=== PATIENT | female | born 1995 | race Hispanic/Latino ===

== ENCOUNTER 2016-07-12 08:40 | Emergency (ER) | payer OTHER ==
[~2016-07-12] VITALS: Ht 162.6 cm; Wt 134.3 kg
[~2016-07-12 08:40] MED LIST: MOTRIN 600 MG600 MG PO; MOTRIN600 MG PO; PEN-VK500 MG PO; PROAIR HFA0.09 MG/Ac INH; [UNRECOGNIZED DRUG - OTHER] PO
--- NOTE | 2016-07-12 08:55 | ED HEADACHE COMPLAINT ---
History of Present Illness General Chief Complaint: Headache Stated Complaint: HEADACHE , EYES HURT Source: patient, family Exam Limitations: no limitations Vital Signs & Intake/Output Vital Signs & Intake/Output Vital Signs Date Time Temp Pulse Resp B/P Pulse O2 O2 Flow FiO2 Ox Delivery Rate 07/12 1324 70 22 110/70 98 Room Air 07/12 1149 60 20 102/77 100 07/12 0853 96.0 81 20 117/77 98 Room Air Room Air Allergies Coded Allergies: NO KNOWN ALLERGIES (07/13/14) Reconcile Medications Cyclobenzaprine HCl 10 MG TABLET 1 TAB PO Q8P PAIN OR SPASM Triage Note: PT TO ED WITH C/O HEADACHE, BILATERAL EYE PAIN X SEVERAL DAYS, C/O NAUSEA BUT NO VOMITING. DENIES SINUS CONGESTION OR OTHER SYMPTOMS. DENIES FEVER AT HOME. Triage Nurses Notes Reviewed? yes : No Patient currently breastfeeds: No HPI: Patient presents with a headache that she has had for the past week. Patient states that the headache is gone when she wakes up within steadily increases throughout the day today, throbbing bifrontal headache by the nighttime. Patient is able to fall asleep and again wakes up without a headache. There is no blurry vision. There is no nausea or vomiting. There are no fevers or chills. Patient has been taking Advil with slight relief of the headache. Patient doesn't have a primary care physician so comes in for evaluation. There is no radiation which she has the pain. There are no aggravating factors and the only slightly mitigating factors the Motrin that she has been taking. Past History Travel History Traveled to [place] past 21 day No Medical History Any Pertinent Medical History? see below for history Neurological: NONE EENT: NONE Cardiovascular: NONE Respiratory: asthma Gastrointestinal: NONE Hepatic: NONE Renal: NONE Musculoskeletal: NONE Psychiatric: NONE Endocrine: NONE Blood Disorders: NONE Cancer(s): NONE Surgical History Surgical History: non-contributory Psychosocial History Who do you live with Family What is your primary language Pashto Tobacco Use: Never used ETOH Use: denies use Illicit Drug Use: denies illicit drug use Family History Hx Contributory? No Review of Systems Review of Systems Constitutional: Reports: no symptoms. Eyes: Reports: no symptoms. Ears, Nose, Throat, Mouth: Reports: no symptoms. Respiratory: Reports: no symptoms. Cardiovascular: Reports: no symptoms. Gastrointestinal/Abdominal: Reports: no symptoms. Genitourinary: Reports: no symptoms. Musculoskeletal: Reports: no symptoms. Skin: Reports: no symptoms. Neurological/Psychological: Reports: see HPI, headache. Hematologic/Endocrine: Reports: no symptoms. Endocrine: Reports: no symptoms. Immunologic/Allergic: Reports: no symptoms. All Other Systems: Reviewed and Negative Physical Exam Physical Exam General Appearance: well developed/nourished, alert, awake, mild distress Head: atraumatic, normal appearance Eyes: Bilateral: PERRL, EOMI, other (SHARP DISC MARGINS). Ears, Nose, Throat: normal pharynx, normal ENT inspection, hearing grossly normal Neck: normal inspection, supple, full range of motion Respiratory: normal breath sounds, chest non-tender, no respiratory distress, lungs clear Cardiovascular: regular rate/rhythm, normal peripheral pulses Gastrointestinal: normal bowel sounds, soft, non-tender, no organomegaly Back: normal inspection, normal range of motion Extremities: normal inspection, normal capillary refill, normal range of motion, no edema Psychiatric: awake, alert, oriented x 3 Cranial Nerves: normal hearing, normal speech, PERRL Coordination/Gait: normal finger to nose, normal gait Motor/Sensory: no motor/sensory deficits Skin: intact, normal color, warm/dry Lymphatic: no anterior cervical tone Core Measures Severe Sepsis Present: No Septic Shock Present: No Progress Differential Diagnosis: intracranial Hem., meningitis, migraine JOSEPH, subarach. Hem., tension JOSEPH Plan of Care: Orders Procedure Date/time Status HUMAN BETA HCG SCREEN 07/12 908 Complete COMPREHENSIVE METABOLIC PANEL 07/12 908 Complete CBC WITHOUT DIFFERENTIAL 07/12 908 Complete Laboratory Tests 07/12/16 1002: Anion Gap 6, Estimated GFR > 60, BUN/Creatinine Ratio 20.0, Glucose 142 H, Calcium 9.2, Total Bilirubin 0.3, AST 14, ALT 22, Alkaline Phosphatase 90, Total Protein 6.8, Albumin 3.4 L, Globulin 3.4, Albumin/Globulin Ratio 1.0 L, Total Beta HCG NEGATIVE, CBC w Diff NO MAN DIFF REQ, RBC 4.81, MCV 73.1 L, MCH 23.9 L, RDW 17.1 H, MPV 8.2, Gran % 61.1, Lymphocytes % 29.3, Monocytes % 6.2, Eosinophils % 3.1, Basophils % 0.3, Absolute Granulocytes 6.4, Absolute Lymphocytes 3.1, Absolute Monocytes 0.7 H, Absolute Eosinophils 0.3, Absolute Basophils 0, PUBS MCHC 32.6 L Diagnostic Imaging: Viewed by Me: CT Scan. Discussed w/RAD: CT Scan. Radiology Impression: PATIENT: WILMAN RIBERA PRESENT AGE: 21 PATIENT ACCOUNT NO: [id number] : 95 LOCATION: [facility] ORDERING PHYSICIAN: CELIA UMLTANI MD SERVICE DATE: 07/12/16 EXAM TYPE: CAT - CT HEAD WO IV CONTRAST EXAMINATION: CT HEAD WITHOUT CONTRAST CLINICAL INFORMATION: Headache. Assess for intracranial hemorrhage. COMPARISON: None. TECHNIQUE: Contiguous axial imaging was performed from the skull base to vertex without intravenous administration of contrast. DLP: 600.71 mGy-cm FINDINGS: There is no evidence of acute intracranial hemorrhage or territorial infarction. No abnormal mass effect or midline shift is seen. Frias to white matter differentiation is well preserved. No extra-axial fluid collections are identified. The ventricles are normal in size; mild asymmetry of the bodies of the lateral ventricles is within normal limits of variation. There is no abnormal attenuation within the brain parenchyma. There is mild prominence of the adenoidal soft tissues, partially visualized. The osseous structures and soft tissues are normal. The mastoid air cells are well-aerated. There is moderate mucoperiosteal thickening of the anterior ethmoid sinuses bilaterally. IMPRESSION: 1. There are no acute bleeds or territorial infarcts. 2. There are no masses or fluid collections. 3. There is moderate mucoperiosteal thickening of the anterior ethmoid sinuses. DICTATED BY: ADRIANNA BECERRIL MD DATE/TIME DICTATED :07/12/161220 STATION CASHIER:ROGELIO DATE/TIME TRANSCRIBED:07/12/161220 CONFIDENTIAL, DO NOT COPY WITHOUT APPROPRIATE AUTHORIZATION. < Electronically signed in Other Vendor System> SIGNED BY: ADRIANNA BECERRIL MD 1226 Comments: Discussed with the patient possibility of pseudotumor cerebri and that a lumbar puncture would be needed to determine if that were the case. At this point the patient is feeling better and her symptoms don't really correlate with idiopathic intracranial hypertension. Patient states that she wants to go home and she'll she does promises to return if her symptoms worsen for the lumbar puncture. Departure Departure Disposition: HOME OR SELF CARE Condition: Stable Clinical Impression Primary Impression: Headache Referrals: ANA GONSALVES,JERE Dennison Additional Instructions: RETURN IF SYMPTOMS WORSEN OR FOR ANY COCNERNS Departure Forms: Customer Survey General Discharge Information Prescriptions: Current Visit Scripts Cyclobenzaprine HCl 1 TAB PO Q8P #20 TAB
[2016-07-12 10:09] LABS: ABSOLUTE BASOPHIL COUNT 0 /CUMM (0.0-0.2); ABSOLUTE EOSINOPHIL COUNT 0.3 /CUMM (0.0-0.7); ABSOLUTE GRANULOCYTE CT 6.4 /CUMM (1.4-6.5); ABSOLUTE LYMPH COUNT 3.1 /CUMM (1.2-3.4); ABSOLUTE MONOCYTE COUNT 0.7 /CUMM (0.10-0.60); BASOPHIL % 0.3 % (0.0-2.0); EOSINOPHIL % 3.1 % (0-5); GRANULOCYTE % 61.1 % (42.2-75.2); HEMATOCRIT 35.2 % (37-47); MEAN CORPUSCULAR HGB 23.9 PG (27.0-31.0); MEAN CORPUSCULAR HGB CONC 32.6 G/DL (33.0-37.0); MEAN CORPUSCULAR VOLUME 73.1 FL (81.0-99.0); MEAN PLATELET VOLUME 8.2 FL (7.4-10.4); PLATELET COUNT 365 /CUMM (130-400); RBC DISTRIBUTION WIDTH 17.1 % (11.5-14.5); RED BLOOD CELL CT 4.81 /CUMM (4.20-5.40); WHITE BLOOD CELL COUNT 10.5 /CUMM (4.8-10.8)
--- NOTE | 2016-07-12 12:27 | CT SCAN REPORT ---
EXAMINATION: CT HEAD WITHOUT CONTRAST CLINICAL INFORMATION: Headache. Assess for intracranial hemorrhage. COMPARISON: None. TECHNIQUE: Contiguous axial imaging was performed from the skull base to vertex without intravenous administration of contrast. DLP: 600.71 mGy-cm FINDINGS: There is no evidence of acute intracranial hemorrhage or territorial infarction. No abnormal mass effect or midline shift is seen. Rfias to white matter differentiation is well preserved. No extra-axial fluid collections are identified. The ventricles are normal in size; mild asymmetry of the bodies of the lateral ventricles is within normal limits of variation. There is no abnormal attenuation within the brain parenchyma. There is mild prominence of the adenoidal soft tissues, partially visualized. The osseous structures and soft tissues are normal. The mastoid air cells are well-aerated. There is moderate mucoperiosteal thickening of the anterior ethmoid sinuses bilaterally. IMPRESSION: 1. There are no acute bleeds or territorial infarcts. 2. There are no masses or fluid collections. 3. There is moderate mucoperiosteal thickening of the anterior ethmoid sinuses.
[2016-07-12] MEDS ORDERED: CYCLOBENZAPRINE10 M1 PO (13:11)
[2016-07-12 13:24] VITALS: BP 110/70
[2016-07-13] MEDS ORDERED: ZITHROMAX250 M2 PO (10:07)
== END 2016-07-12 13:25 ==
LOC: ERH 08:40
PROVIDERS: Emergency Medicine
DX: R51 Headache (principal)
CPT/HCPCS: 96361; 96365; 96375; J1885; J2405

== ENCOUNTER 2016-07-13 05:58 | Emergency (ER) | payer OTHER ==
[~2016-07-13] VITALS: Ht 162.6 cm; Wt 131.5 kg
[~2016-07-13 05:58] MED LIST changes: +CYCLOBENZAPRINE10 M1 PO
--- NOTE | 2016-07-13 06:36 | ED HEADACHE COMPLAINT ---
History of Present Illness General Chief Complaint: Headache Stated Complaint: "PER MOM MIGRAINE, FEVER" Source: patient, family, old records Exam Limitations: no limitations Vital Signs & Intake/Output Vital Signs & Intake/Output Vital Signs Date Time Temp Pulse Resp B/P Pulse O2 O2 Flow FiO2 Ox Delivery Rate 07/13 0841 97.5 74 18 117/56 98 Room Air 07/13 0602 98.8 130 20 158/80 96 Allergies Coded Allergies: NO KNOWN ALLERGIES (07/13/14) Triage Note: PT TO ED C/O HEADCAHE, DIZZINESS, BODY ACHE, N/V/D, LUQ ABDOMINAL PAIN, FEVER AND CHILLS. PT REPORTS BEING SEEN HERE YESTERDAY FOR HEADACHE AND DIZZINESS WITH PRESCRIPTION OF CYCLOBENZAPRINE. PT REPORTS GOING HOME FEELING BETTER FOR A FEW HOURS THEN GETTING A SUDDEN ONSET OF ABDOMINAL PAIN, NAUSEA, DIRRHEA, FEVER AND CHILLS AROUND 9 PM. PT REPORTS TAKING PEPTO BISMOL AND DIARRHEA IMPROVING BUT HEADACHE AND DIZZINESS WORSENING. Triage Nurses Notes Reviewed? yes Onset: Last week Duration: day(s):, changing over time, continues in ED Timing: recent history Quality/Severity: severe, pressure, throbbing Head Injury Location: frontal, temporal, parietal Modifying Factors: Improves With: medication. Associated Symptoms: facial pain, fever/chills, nausea/vomiting, nasal congestion, weakness LMP (ages 10-50): unknown : No Patient currently breastfeeds: No HPI: 1 week prior to admission patient complains of headache about the eyes chills body aches nausea dizziness congestion. Headache became worse chest presented to the emergency department yesterday with decreased appetite sweating frequent loose watery stools generalized abdominal pain especially the left upper quadrant. There is no documented fever vomiting chest pain cough shortness of breath dysuria rash bleeding change in motor sensory function. Family members have decreased appetite loose watery stools. (TEMI GONSALVES,MILES) Reconcile Medications Azithromycin (Zithromax) 250 MG TABLET 1 DP PO AD PNEUMONIA 2 the first day followed by 1 for days 2-5 Cyclobenzaprine HCl 10 MG TABLET 1 TAB PO Q8P PAIN OR SPASM (CAROLINA GONSALVES,SHEILA) Past History Travel History Traveled to [place] past 21 day No Medical History Any Pertinent Medical History? see below for history Neurological: NONE EENT: NONE Cardiovascular: NONE Respiratory: asthma Gastrointestinal: NONE Hepatic: NONE Renal: NONE Musculoskeletal: NONE Psychiatric: NONE Endocrine: NONE Blood Disorders: NONE Cancer(s): NONE Surgical History Surgical History: non-contributory Psychosocial History Who do you live with Family What is your primary language Lebanese Tobacco Use: Never used Family History Hx Contributory? No (MILES MEMBRENO MD) Review of Systems Review of Systems Constitutional: Reports: see HPI, chills, diaphoresis, malaise, weakness. Eyes: Reports: no symptoms. Ears, Nose, Throat, Mouth: Reports: no symptoms. Respiratory: Reports: no symptoms. Cardiovascular: Reports: no symptoms. Gastrointestinal/Abdominal: Reports: see HPI, abdominal pain, diarrhea, nausea. Genitourinary: Reports: no symptoms. Musculoskeletal: Reports: no symptoms. Skin: Reports: no symptoms. Neurological/Psychological: Reports: see HPI, headache. Hematologic/Endocrine: Reports: no symptoms. Endocrine: Reports: no symptoms. Immunologic/Allergic: Reports: no symptoms. All Other Systems: Reviewed and Negative (MILES MEMBRENO MD) Physical Exam Physical Exam General Appearance: well developed/nourished, alert, awake, anxious, moderate distress, obese Head: atraumatic, normal appearance Eyes: Bilateral: normal appearance, PERRL, EOMI. Ears, Nose, Throat: normal pharynx, normal ENT inspection, hearing grossly normal Neck: normal inspection, supple, full range of motion, no midline tenderness Respiratory: normal breath sounds, chest non-tender, no respiratory distress, quiet respiration, lungs clear Cardiovascular: regular rate/rhythm, normal peripheral pulses, norml femoral pulses equa Gastrointestinal: normal bowel sounds, soft, non-tender, no organomegaly Back: normal inspection, normal range of motion, no vertebral tenderness Extremities: normal inspection, normal capillary refill, normal range of motion, no edema Psychiatric: awake, alert, oriented x 3 Cranial Nerves: normal hearing, normal speech, PERRL Coordination/Gait: normal finger to nose, normal gait Motor/Sensory: no motor/sensory deficits Reflexes: 2+: bicep (R), bicep (L). Skin: intact, normal color, warm/dry Lymphatic: no anterior cervical tone Core Measures Severe Sepsis Present: No Septic Shock Present: No (MILES MEMBRENO MD) Progress Differential Diagnosis: cluster JOSEPH, tension JOSEPH, viral cephalgia Plan of Care: Orders Procedure Date/time Status URINALYSIS 04/07 0718 Complete Add-on Test (ER Only) 07/13 628 Active LIPASE 07/13 620 Complete COMPREHENSIVE METABOLIC PANEL 07/13 620 Complete CBC WITHOUT DIFFERENTIAL 07/13 620 Complete Laboratory Tests 07/13/16729: Urine Color YEL, Urine Clarity CLEAR, Urine pH 6.0, Ur Specific Vance 1.020, Urine Protein NEG, Urine Ketones NEG, Urine Nitrite NEG, Urine Bilirubin NEG, Urine Urobilinogen 0.2, Ur Leukocyte Esterase NEG, Ur Microscopic EXAM NOT REQUIRED, Urine Hemoglobin NEG, Urine Glucose NEG 07/13/16 0635: Anion Gap 12, Estimated GFR > 60, BUN/Creatinine Ratio 12.9, Glucose 114 H, Calcium 9.5, Total Bilirubin 0.5, AST 15, ALT 30, Alkaline Phosphatase 98, Total Protein 7.0, Albumin 3.6, Globulin 3.4, Albumin/Globulin Ratio 1.1, Lipase 24, CBC w Diff MAN DIFF ORDERED, RBC 4.78, MCV 72.7 L, MCH 23.7 L, RDW 17.4 H, MPV 8.4, Gran % 87.5 H, Lymphocytes % 9.5 L, Monocytes % 1.6 L, Eosinophils % 1.4, Basophils % 0 L, Absolute Granulocytes 17.6 H, Segmented Neutrophils 87 H, Band Neutrophils 1, Absolute Lymphocytes 1.9, Lymphocytes 7 L, Monocytes 3, Absolute Monocytes 0.3, Eosinophils 2, Absolute Eosinophils 0.3, Absolute Basophils 0, Platelet Estimate ADEQUATE, Polychromasia 1+, Hypochromic- Microcytic 1+, Poikilocytosis 1+, Anisocytosis 1+, Microcytic Cells 1+, Ovalocytes 1+, PUBS MCHC 32.7 L, Fld Total RBCs Counted 100 07/13/2016 7:13:27 AM Patient signed out to me by Dr. Membreno. Pending labs and reevaluation. Patient refusing to have LP done which was suggested on yesterday's visit. WBC 20,000. Left sided abdominal pain. Urinalysis, CT scan abdomen ordered. 9 AM U/A NEGATIVE. PATIENT BACK FROM CT NOW. (CAROLINA GONSALVES,SHEILA) Hand-Off Endorsed To: SHEILA FIGUEROA MD Endorsed Time: 0700 Pending: labs, other (clinical condition) Comments: Mom does not want lumbar puncture. (TEMI GONSALVES,MILES) Diagnostic Imaging: Viewed by Me: Radiology Read, CT Scan. Discussed w/RAD: Radiology Read, CT Scan. Radiology Impression: PATIENT: WILMAN RIBERA PRESENT AGE: 21 PATIENT ACCOUNT NO: [id number] : 95 LOCATION: [facility] ORDERING PHYSICIAN: SHEILA FIGUEROA MD SERVICE DATE: 07/13/16 EXAM TYPE: CAT - CT ABD & PELVIS W IV CONTRAST EXAMINATION: CT ABDOMEN AND PELVIS WITH CONTRAST CLINICAL INFORMATION: Left lower quadrant pain, diarrhea, fever, and leukocytosis. COMPARISON: None TECHNIQUE: Multidetector volumetric imaging was performed of the abdomen and pelvis before and after the IV administration of 95 mL of Optiray 320 intravenous contrast. Sagittal and coronal reformatted images were obtained on the technologist's workstation. DLP: 1602 mGy-cm FINDINGS: LUNG BASES: The lung bases are clear apart from a small area of airspace opacification in the posterior left base (see for example series 3 image 118). This may reflect a focus of platelike atelectasis versus a small region of consolidation. The imaged heart and pericardium appear unremarkable. LIVER, GALLBLADDER, AND BILIARY TREE: The liver is normal in size, shape, and attenuation. No focal hepatic lesion or biliary ductal dilatation is present. The gallbladder is unremarkable with no evidence of radiopaque gallstones, gallbladder wall thickening, or obvious pericholecystic inflammatory changes. PANCREAS: Unremarkable. SPLEEN: Unremarkable. ADRENAL GLANDS: Unremarkable. KIDNEYS AND URETERS: The kidneys are normal in size, shape, and attenuation. No hydronephrosis, hydroureter, or calculi seen. No perinephric stranding. BLADDER: Under distended. GASTROINTESTINAL TRACT: There is some streak artifact through the pelvis, accounting for which there is no convincing inflammatory changes surrounding the distal bowel. The colon appears unremarkable. A normal appendix is visualized. Loops of small bowel are normal in caliber and configuration. ABDOMINAL WALL: Minor and fairly symmetric subcutaneous fat stranding along the inferolateral abdominal musculature (see for example series 3 image 481), nonspecific. LYMPH NODES: No adenopathy is evident. VASCULAR: Unremarkable. PELVIC VISCERA: Unremarkable. OSSEOUS STRUCTURES: No acute osseous abnormalities. There are 5 nonrib-bearing lumbar type vertebral bodies. No spondylolysis. No significant degenerative changes in the imaged spine. IMPRESSION: 1. No acute intra-abdominal or intrapelvic pathology is visualized. 2. Small region of airspace opacification in the left lung base, possibly an evolving area of consolidation. DICTATED BY: CASSIDY SNEED MD DATE/TIME DICTATED :07/13/16936 WORKFORCE MANAGEMENT MANAGER:ROGELIO DATE/TIME TRANSCRIBED:07/13/16936 CONFIDENTIAL, DO NOT COPY WITHOUT APPROPRIATE AUTHORIZATION. < Electronically signed in Other Vendor System> SIGNED BY: CASSIDY SNEED MD 07/13/1647 CXR Impression: PATIENT: WILMAN RIBERA PRESENT AGE: 21 PATIENT ACCOUNT NO: [id number] : 95 LOCATION: [facility] ORDERING PHYSICIAN: SHEILA FIGUEROA MD SERVICE DATE: 07/13/16 EXAM TYPE: RAD - XRY-CHEST XRAY , PA AND LATERAL EXAMINATION: XR CHEST CLINICAL INFORMATION: Fever, leukocytosis. COMPARISON: CT of the abdomen and pelvis from earlier the same day. TECHNIQUE: 2 views of the chest were obtained. FINDINGS: The cardiomediastinal silhouette is normal. It is difficult to definitively visualize a small area of airspace opacification seen on CT radiographically. No large consolidation. No pleural effusion, pneumothorax, or evidence of pulmonary edema. No acute osseous abnormalities IMPRESSION: Given the small size of the airspace opacification in the left base seen on CT, it is difficult to definitively resolve radiographically. DICTATED BY: CASSIDY SNEED MD DATE/TIME DICTATED:07/13/161033 WORKFORCE MANAGEMENT MANAGER:ROGELIO DATE/TIME TRANSCRIBED:1033 CONFIDENTIAL, DO NOT COPY WITHOUT APPROPRIATE AUTHORIZATION. < Electronically signed in Other Vendor System> SIGNED BY: CASSIDY SNEED MD 07/13/16 1039 (SHEILA FIGUEROA MD) Departure Departure Condition: Stable Departure Forms: Customer Survey General Discharge Information (MILES MEMBRENO MD) Departure Time of Disposition: 1005 Disposition: HOME OR SELF CARE Clinical Impression Primary Impression: Headache due to viral infection Secondary Impressions: Leukocytosis, Pneumonia Referrals: TAE SUAREZ DO, MD,JUAN FRANCISCO FLORES MD,SEDRICK Additional Instructions: Take the azithromycin as directed. Motrin or Tylenol as needed for fever or headache. Please follow up with her primary care doctor or the one listed here. Prescriptions: Current Visit Scripts Azithromycin (Zithromax) 1 DP PO AD #6 TAB 2 the first day followed by 1 for days 2-5 (CAROLINA GONSALVES,SHEILA)
[2016-07-13 06:42] LABS: ABSOLUTE BASOPHIL COUNT 0 /CUMM (0.0-0.2); ABSOLUTE EOSINOPHIL COUNT 0.3 /CUMM (0.0-0.7); ABSOLUTE GRANULOCYTE CT 17.6 /CUMM (1.4-6.5); ABSOLUTE LYMPH COUNT 1.9 /CUMM (1.2-3.4); ABSOLUTE MONOCYTE COUNT 0.3 /CUMM (0.10-0.60); BASOPHIL % 0 % (0.0-2.0); EOSINOPHIL % 1.4 % (0-5); GRANULOCYTE % 87.5 % (42.2-75.2); HEMATOCRIT 34.7 % (37-47); MEAN CORPUSCULAR HGB 23.7 PG (27.0-31.0); MEAN CORPUSCULAR HGB CONC 32.7 G/DL (33.0-37.0); MEAN CORPUSCULAR VOLUME 72.7 FL (81.0-99.0); MEAN PLATELET VOLUME 8.4 FL (7.4-10.4); PLATELET COUNT 369 /CUMM (130-400); RBC DISTRIBUTION WIDTH 17.4 % (11.5-14.5); RED BLOOD CELL CT 4.78 /CUMM (4.20-5.40)
[2016-07-13 06:45] LABS: WHITE BLOOD CELL COUNT 20.1 /CUMM (4.8-10.8)
[2016-07-13 09:41] VITALS: BP 117/56
--- NOTE | 2016-07-13 09:47 | CT SCAN REPORT ---
EXAMINATION: CT ABDOMEN AND PELVIS WITH CONTRAST CLINICAL INFORMATION: Left lower quadrant pain, diarrhea, fever, and leukocytosis. COMPARISON: None TECHNIQUE: Multidetector volumetric imaging was performed of the abdomen and pelvis before and after the IV administration of 95 mL of Optiray 320 intravenous contrast. Sagittal and coronal reformatted images were obtained on the technologist's workstation. DLP: 1602 mGy-cm FINDINGS: LUNG BASES: The lung bases are clear apart from a small area of airspace opacification in the posterior left base (see for example series 3 image 118). This may reflect a focus of platelike atelectasis versus a small region of consolidation. The imaged heart and pericardium appear unremarkable. LIVER, GALLBLADDER, AND BILIARY TREE: The liver is normal in size, shape, and attenuation. No focal hepatic lesion or biliary ductal dilatation is present. The gallbladder is unremarkable with no evidence of radiopaque gallstones, gallbladder wall thickening, or obvious pericholecystic inflammatory changes. PANCREAS: Unremarkable. SPLEEN: Unremarkable. ADRENAL GLANDS: Unremarkable. KIDNEYS AND URETERS: The kidneys are normal in size, shape, and attenuation. No hydronephrosis, hydroureter, or calculi seen. No perinephric stranding. BLADDER: Under distended. GASTROINTESTINAL TRACT: There is some streak artifact through the pelvis, accounting for which there is no convincing inflammatory changes surrounding the distal bowel. The colon appears unremarkable. A normal appendix is visualized. Loops of small bowel are normal in caliber and configuration. ABDOMINAL WALL: Minor and fairly symmetric subcutaneous fat stranding along the inferolateral abdominal musculature (see for example series 3 image 481), nonspecific. LYMPH NODES: No adenopathy is evident. VASCULAR: Unremarkable. PELVIC VISCERA: Unremarkable. OSSEOUS STRUCTURES: No acute osseous abnormalities. There are 5 nonrib-bearing lumbar type vertebral bodies. No spondylolysis. No significant degenerative changes in the imaged spine. IMPRESSION: 1. No acute intra-abdominal or intrapelvic pathology is visualized. 2. Small region of airspace opacification in the left lung base, possibly an evolving area of consolidation.
[2016-07-13] MEDS ORDERED: ZITHROMAX250 M2 PO (10:07)
--- NOTE | 2016-07-13 10:39 | RADIOLOGY REPORT ---
EXAMINATION: XR CHEST CLINICAL INFORMATION: Fever, leukocytosis. COMPARISON: CT of the abdomen and pelvis from earlier the same day. TECHNIQUE: 2 views of the chest were obtained. FINDINGS: The cardiomediastinal silhouette is normal. It is difficult to definitively visualize a small area of airspace opacification seen on CT radiographically. No large consolidation. No pleural effusion, pneumothorax, or evidence of pulmonary edema. No acute osseous abnormalities IMPRESSION: Given the small size of the airspace opacification in the left base seen on CT, it is difficult to definitively resolve radiographically.
== END 2016-07-13 10:20 ==
LOC: ERH 05:58
PROVIDERS: Emergency Medicine
DX: B34.9 Viral infection, unspecified (principal); R51 Headache; D72.829 Elevated white blood cell count, unspecified; J18.9 Pneumonia, unspecified organism; R10.84 Generalized abdominal pain; R19.7 Diarrhea, unspecified
CPT/HCPCS: 74177; 81003; 96374; 96375; 99291; J1885; J2765

== ENCOUNTER 2017-07-09 23:48 | Emergency (ER) | payer OTHER ==
[~2017-07-09] VITALS: Ht 162.6 cm; Wt 134.3 kg
[~2017-07-09 23:48] MED LIST changes: +ZITHROMAX250 M2 PO
[2017-07-10 00:31] VITALS: BP 128/88
--- NOTE | 2017-07-10 00:46 | ED INFLUENZA/URI COMPLAINT ---
History of Present Illness General Chief Complaint: Upper Respiratory Sx/Fever Stated Complaint: COUGHING,CHEST PAIN,VOMITING Source: patient Exam Limitations: no limitations Vital Signs & Intake/Output Vital Signs & Intake/Output Vital Signs Date Time Temp Pulse Resp B/P B/P Pulse O2 O2 Flow FiO2 Mean Ox Delivery Rate 07/10 0031 98.6 94 18 128/88 99 Room Air Allergies Coded Allergies: No Known Allergies (07/10/17) Reconcile Medications Albuterol Sulfate (Proair Hfa) 90 MCG HFA.AER.AD 2 PUF INH Q4-6 PRN PRN cough/ wheezing Amoxicillin/Potassium Clav (Augmentin 875-125 Tablet) 875 MG-125 MG TABLET 1 TAB PO BID bronchtiis Codeine Phosphate/Guaifenesi (Cheratussin AC Syrup) 10 MG-100 MG/5 ML LIQUID 10 ML PO Q6H PRN COUGGH Prednisone 50 MG TABLET 1 TAB PO DAILY bronchitis Triage Note: TRIAGE: PATIENT TO ER FROM HOME REPORTING COUGH X 2 WEEKS, INCREASED SINCE ONSET, NOW HAVING COUGHING FITS THAT "END UP W/ VOMITTING CLEAR/ WHITE MUCOUS." +SORE THROAT. REPORTS SLIGHT DIFFICULTY CATCHING BREATH. NO OBVIOUS EXERTIONAL SOB NOTED. NO ACUTE DISTRESS. FORMER SMOKER. REPORTS +CHANCE OF . Triage Nurses Notes Reviewed? yes Onset: Gradual Duration: week(s): (2) Timing: single episode today Severity: moderate, severe Prior Episodes/Possible Cause: occassional episodes No Modifying Factors: none Associated Symptoms: cough, shortness of breath, sore throat, wheezing LMP (ages 10-50): unknown : No Patient currently breastfeeds: No HPI: 22-year-old female past medical history of asthma presents for evaluation of cough, congestion, wheezing and sore throat for the past 2 weeks. she has a hx of asthma and currently does not have an inhaler. she is a former smoker. no fever, hemopytsis, lower extemity edema. she is eating and dnriking. no n/v. she is not taking any meds. no sick contacts. (Sesar Rothman) Past History Travel History Traveled to [place] past 21 day No Medical History Any Pertinent Medical History? see below for history Neurological: NONE EENT: NONE Cardiovascular: NONE Respiratory: asthma Gastrointestinal: NONE Hepatic: NONE Renal: NONE Musculoskeletal: NONE Psychiatric: NONE Endocrine: NONE Blood Disorders: NONE Cancer(s): NONE Surgical History Surgical History: non-contributory Psychosocial History Who do you live with Family What is your primary language Luxembourgish Tobacco Use: Quit >30 days ago Family History Hx Contributory? No (Sesar Rothman) Review of Systems Review of Systems Constitutional: Reports: no symptoms. EENTM: Reports: no symptoms. Respiratory: Reports: see HPI, cough, short of breath, wheezing. Cardiovascular: Reports: no symptoms. GI: Reports: no symptoms. Genitourinary: Reports: no symptoms. Musculoskeletal: Reports: no symptoms. Skin: Reports: no symptoms. Neurological/Psychological: Reports: no symptoms. Hematologic/Endocrine: Reports: no symptoms. Immunologic/Allergic: Reports: no symptoms. All Other Systems: Reviewed and Negative (Sesar Rothman) Physical Exam Physical Exam General Appearance: well developed/nourished, no apparent distress, alert, awake , obese Head: atraumatic, normal appearance Eyes: Bilateral: normal appearance, PERRL, EOMI. Ears, Nose, Throat: moist mucous membrane, hearing grossly normal, nasal congestion, nasal drainage Neck: normal inspection, supple, full range of motion Respiratory: chest non-tender, no respiratory distress, rhonchi, wheezing Cardiovascular: regular rate/rhythm, normal peripheral pulses Peripheral Pulses: 2+ radial (R), 2+ radial (L) Gastrointestinal: soft, non-tender Back: normal inspection, normal range of motion Extremities: normal inspection, normal range of motion, no edema Neurologic/Psych: no motor/sensory deficits, awake, alert, oriented x 3, normal gait Skin: intact, normal color, warm/dry Lymphatic: no anterior cervical tone Core Measures Sepsis Present: No Sepsis Focused Exam Completed? No (Sesar Rothman) Progress Differential Diagnosis: influenza, pneumonia, pharyngitis, sinusitis, BRONCHITIS , ASTHMA EXACERBATION, PE Initial ED EKG: none (Sesar Rothman) Plan of Care: Current Medications Sig/Erika Start time Last Medication Dose Stop Time Status Admin Amoxicillin/ 1,000 MG ONCE ONE 07/10 99 UNVr 07/10 Clavulanate Potassium 07/10 (Augmentin) Ibuprofen 800 MG ONCE ONE 07/10 99 UNVr 07/10 (Motrin) 07/10 Prednisone 60 MG ONCE ONE 07/10 99 UNVr 07/10 07/10 0101 0103 Albuterol Sulfate 3 ML ONCE ONE 07/10 44 UNVr 07/10 (Proventil) 07/10 45 0055 Ipratropium [place] 2.5 ML ONCE ONE 07/10 44 UNVr 07/10 (Atrovent) 07/10 45 0055 PT SEEN AND EVALUATED. SHE HAS DIFFUSE WHEEZING AND RHONCHI. NO HYPOXIA NO CYANOSIS. She is afebrile nontoxic-appearing. Patient was medicated with DuoNeb Augmentin and prednisone. She is feeling better. She'll be discharged with instructions to continue pro-air Cheratussin Augmentin and prednisone. Quit smoking. Follow-up with primary care doctor. Discussed return precautions patient agrees the plan (Sesar Rothman) (Linda GONSALVES,Michael Simeon) Departure Departure Disposition: HOME OR SELF CARE Condition: Stable Clinical Impression Primary Impression: Acute bronchitis Qualifiers: Bronchitis organism: unspecified organism Qualified Code: J20.9 - Acute bronchitis, unspecified Referrals: Elieser Stone MD (PCP/Family) Additional Instructions: Rest and drink plenty of fluids. Take antibiotics and steroids as directed for full course. Use pro-air inhaler 2 puffs every 4-6 hours as needed for cough or shortness of breath. Cheratussin as needed for cough this may cause drowsiness. Follow-up with her primary care doctor monitoring her symptoms return with any concerns. Departure Forms: Customer Survey General Discharge Information Prescriptions: Current Visit Scripts Albuterol Sulfate (Proair Hfa) 2 PUF INH Q4-6 PRN PRN cough/wheezing #1 INHAL Amoxicillin/Potassium Clav (Augmentin 875-125 Tablet) 1 TAB PO BID #20 TAB Prednisone 1 TAB PO DAILY #5 TAB Codeine Phosphate/Guaifenesi (Cheratussin AC Syrup) 10 ML PO Q6H PRN COUGGH #240 ML (Sesar Rothman) PA/[employer] Co-Sign Statement Statement: ED Attending supervision documentation- [x] I saw and evaluated the patient. I have also reviewed all the pertinent lab results and diagnostic results. I agree with the findings and the plan of care as documented in the PA's/[employer]'s documentation. [] I have reviewed the ED Record and agree with the PA's/[employer]'s documentation. [] Additions or exceptions (if any) to the PAs/[employer]'s note and plan are summarized below: [] (Linda GONSALVES,Michael Simeon)
[2017-07-10] MEDS ORDERED: CHERATUSSIN AC118 M1 PO (01:05)
[2017-07-10] MEDS ORDERED: AUGMENTIN 875-1 EACH PO (01:05)
[2017-07-10] MEDS ORDERED: PREDNISONE50 M1 PO (01:05)
[2017-07-10] MEDS ORDERED: PROAIR HFA8.5 GM INH (01:05)
== END 2017-07-10 01:11 ==
LOC: ERH 23:48
DX: J20.9 Acute bronchitis, unspecified (principal)
CPT/HCPCS: J3490